=== PATIENT | female | born 2000 | race Caucasian/White ===

== ENCOUNTER 2022-04-09 16:46 | Emergency (ER) | payer OTHER ==
[2022-04-09 18:05] LABS: Pregnancy Test - Urine (BHCG) Negative (Negative)
[2022-04-09 18:08] LABS: Pregu Control Background? CLEAR/WHITE (CLR/WHITE); Pregu Control Bar Appear? YES (CONTROL BAR)
== END 2022-04-09 19:20 | disposition home or self-care (01) ==
LOC: CSHERS 16:46
DX: S00.03XA Contusion of scalp, initial encounter (principal); W01.0XXA Fall on same level from slipping, tripping and stumbling without subsequent striking against object, initial encounter
CPT/HCPCS: 70450; 81025